=== PATIENT | male | born 1945 | race Caucasian/White ===

== ENCOUNTER → 2016-11-23 | Outpatient (CLI) | payer OTHER ==
[~2016-11-23] MED LIST: ASPI81TA28 PO; ATOR10TA82 PO; DVN/160 PO; WARF2TAB PO
== END | disposition home or self-care (01) ==
LOC: C.RDSM 13:33
PROVIDERS: ATTEND Physical Medicine & Rehabilitation Sports Medicine
DX: M25.562 Pain in left knee (principal); M25.561 Pain in right knee; Z96.651 Presence of right artificial knee joint

== ENCOUNTER → 2017-05-21 | Outpatient (CLI) | payer OTHER | END | disposition home or self-care (01) | LOC: C.RDSM 12:58 | PROVIDERS: ATTEND Physical Medicine & Rehabilitation Sports Medicine | DX: M17.12 Unilateral primary osteoarthritis, left knee (principal); Z96.651 Presence of right artificial knee joint ==

== ENCOUNTER 2019-01-04 04:48 | Inpatient (IN) ==
--- NOTE | 2018-12-19 10:56 | Anesthesiology Consultation ---
Date of Service December 19, 2018 Assessment & Plan (1) Encounter for pre-operative examination: PCP clearance (Kavon) 12/26 = "He should do well with surgery and is cleared to go ahead with that. I would assess him as a class II ASA risk for general anesthesia. His main risk port operatively would be infection and thrombotic events. With his history of hypertension and peripheral arterial disease, there ma be a remote risk for cardiovascular events." Chart Review Chart Review: Acceptable Risk for Surgery and Patient seen in Pre Admission Testing Teaching & Discussion Instructed NPO after midnight before surgery, except medications with 15 cc of water. Medication instructions provided according to the PAT guidelines. History Surgery Operation Date: 01/04/19 07:00 Proposed Procedures p Left Total Knee Arthroplasty - Ethan Gray MD Height/Weight Height: 5 ft 10 in Weight: 105.1 kg Allergies Allergy/AdvReac Type Severity Reaction Status Date / Time codeine AdvReac Unknown headache Verified 12/15/18 12:06 Medications Home Medications Medication Instructions Recorded Confirmed Last Taken Vitamin D3 1 dose PO QAM 12/15/18 12/15/18 Unknown aspirin 81 mg PO QPM 12/15/18 12/15/18 Unknown atorvastatin [Lipitor] 10 mg PO PM 12/15/18 12/15/18 Unknown levothyroxine 175 mcg PO QAM 12/15/18 12/15/18 Unknown olmesartan-hydrochlorothiazide 1 tab PO QPM 12/19/18 12/19/18 Unknown Past Medical History Medical History Borderline glaucoma HTN (hypertension) Hyperlipidemia 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 total thyroidectomy Osteoarthritis Exercise / Class Metabolic Activity II 4-5 Yardwork/Stairs/Walk up hill (Denies CP or SOB with stairs) Past Family History Family History Grandfather (Maternal) Family history of diabetes mellitus Grandmother (Maternal) Family history of diabetes mellitus Aunt Family history of diabetes mellitus Family/Other Family history of diabetes mellitus Past Surgical History Surgical History History of colonoscopy History of laminectomy lumbar spine History of oral surgery History of right knee joint replacement History of total thyroidectomy concern for malignancy; benign Status post biopsy of thyroid gland Past Anesthesia History No Hx of Anesthesia Complications and No Family Hx of Anesthesia Complications History of PONV No Hx of PONV and No Hx of Motion Sickness Social History Smoking Status: Former smoker tobacco type: cigarettes Do You Dip or Chew Tobacco: No Smoking End Date: 40 years ago Hx Alcohol Use: Yes Alcohol type: beer, wine and hard liquor alcohol intake frequency: 0-2 drinks per day (1-2 per day) Hx Substance Use: No substance use type: does not use Review of Systems Pt denies any recent chest pain, shortness of breath, palpitations, fever. +cough/congestion currently, not treating with any medications. Physical Exam Vital Signs BP: 156/83 (pt to f/u with PCP) P: 56bpm SPO2: 95% RA T: 97.9 F R: 16 ENMT Mouth: + dentures (full upper, partial lower); no chipped teeth and no loose teeth Thyromental Distance: > or= 3.5 Finger Breadths (4) Mallampati Class: II Neck + short neck; neck extension not limited Respiratory normal respiratory effort Auscultation: + rhonchi (L lung base) and + wheezes (L lung diffuse) Cardiovascular Rate/Rhythm: regular rhythm and + bradycardic Heart Sounds: no murmur Vessels: no carotid bruit Extremities: no edema Testing Laboratory Results 12/19/18 11:07 12/19/18 11:07 PT 10.9 Seconds (9.0-12.0) 12/19/18 11:07 INR 1.1 (0.9-1.1) 12/19/18 11:07 APTT 27.0 Seconds (21.0-31.0) 12/19/18 11:07 Urine Color Yellow 12/19/18 Unknown Urine Appearance Clear (Clear) 12/19/18 Unknown Urine pH 5.0 (4.5-7.5) 12/19/18 Unknown Ur Specific [place] 1.016 (1.000-1.030) 12/19/18 Unknown Urine Protein Negative (Negative) 12/19/18 Unknown Urine Glucose (UA) Negative (Negative) 12/19/18 Unknown Urine Ketones Negative (Negative) 12/19/18 Unknown Urine Nitrite Negative (Negative) 12/19/18 Unknown Ur Leukocyte Esterase Negative (Negative) 12/19/18 Unknown Blood Type A Positive 12/19/18 11:07 Antibody Screen NEGATIVE 12/19/18 11:07 Electrocardiogram Date: 12/19/18 Findings: + SB @ (53) LAFB. No significant change since 2014 EKG. Chest X-Ray Date: 12/19/18 Findings: + NAD Stress Test Date: 11/22/17 Type: exercise Stress EKG was negative for myocardial ischemia at 95% of maximum predicted heart rate. Moderate level of exercise achieved. No arrhythmias reproduced with exercise.
--- NOTE | 2018-12-19 11:03 | PAT Medication Instructions ---
Medication Instructions Date of Service December 19, 2018 Home Medications Vitamin D3 1 dose PO QPM aspirin 81 mg PO QPM atorvastatin [Lipitor] 10 mg PO PM levothyroxine 175 mcg PO QAM olmesartan-hydrochlorothiazide 1 tab PO QPM Take morning of surgery With a small sip of water, OTHERWISE NOTHING TO EAT OR DRINK AFTER MIDNIGHT: levothyroxine 175 mcg PO QAM Take evening before surgery aspirin 81 mg PO QPM atorvastatin [Lipitor] 10 mg PO PM olmesartan-hydrochlorothiazide 1 tab PO QPM Vitamin D3 1 dose PO QPM Other Notes If you have any questions please call us at [phone] or [phone] or [phone] or [phone]
--- NOTE | 2018-12-19 11:28 | XRay Report ---
XR chest Pre-admission PA/Lat CLINICAL HISTORY: pat preoperative evaluation COMPARISON STUDY: 12/06/2014 FINDINGS: The bones soft tissues and hemidiaphragms are normal. The cardiomediastinal silhouette is n ormal. The lungs are clear. The pulmonary vasculature is normal. IMPRESSION: Negative chest. The above report was generated using voice recognition software. It may contain grammatical, syntax or spelling errors. Electronically signed by: Camron Hassan M.D. 12/19/2018 11:27 AM
[2018-12-19 12:31] LABS: Appearance Urine Clear (Clear); Bilirubin Urine Negative (Negative); Blood Urine Negative (Negative); Color Urine Yellow; Glucose Urine UA Negative (Negative); Ketones Urine Negative (Negative); Leukocyte Esterase Urine Negative (Negative); Nitrite Urine Negative (Negative); Protein Urine Negative (Negative); Specific Gravity Urine 1.016 (1.000-1.030); Urobilinogen Urine Negative (Negative)
[2018-12-19 12:35] LABS: Basophils # (auto) 0.02 K/uL (0-0.2); Basophils % (auto) 0.4 %; Eosinophils # (auto) 0.16 K/uL (0-0.5); Eosinophils % (auto) 2.8 %; Hematocrit (blood only) 40.6 % (42-52); Hemoglobin 14.2 g/dL (14.0-18.0); Immature Granulocytes # (auto) 0.01 K/uL (0.00-0.02); Immature Granulocytes % (auto) 0.2 %; Lymphocytes # (auto) 1.75 K/uL (1.2-3.4); Lymphocytes % (auto) 31.1 %; Mean Corpuscular Hemoglobin 34.2 pg (25-34); Mean Corpuscular Volume 97.8 fL (80-100); Mean Platelet Volume 10.2 fL (7.4-10.4); Monocytes # (auto) 0.52 K/uL (0.11-0.59); Monocytes % (auto) 9.2 %; Neutrophils # (auto) 3.17 K/uL (1.4-6.5); Neutrophils % (auto) 56.3 %; Platelet Count 151 K/uL (130-400); RDW Coefficient of Variation 12.8 % (11.5-14.5); RDW Standard Deviation 45.6 fL (36.4-46.3); Red Blood Count 4.15 M/uL (4.7-6.1); White Blood Count 5.63 K/uL (4.8-10.8)
[2018-12-19 12:37] LABS: Creatinine Clr Calc Pharmacy 59.6 ml/min; Est GFR (African American) 61.2; Est GFR (Non-African American) 52.8; Potassium 4.1 mmol/L (3.5-5.1)
[2018-12-19 12:51] LABS: INR 1.1 (0.9-1.1); Prothrombin Time 10.9 Seconds (9.0-12.0)
--- NOTE | 2018-12-23 09:47 | History and Physical Report ---
DATE OF ADMISSION: 01/04/2019 CHIEF COMPLAINT: Left knee pain. HISTORY OF PRESENT ILLNESS: This 73-year-old white male presents to the office with complaints of left knee pain that has been ongoing for several years. There is a longstanding history of left knee pain. It is worse with motion. It is affecting his ADLs. Worse with weightbearing. He previously had a right total knee arthroplasty in 2015 and has done well with that. He elects to proceed with the same procedure on the left. No numbness or tingling. Preoperative imaging has been obtained. PAST MEDICAL HISTORY: Significant for hypertension, elevated cholesterol, recent cold symptoms, hypothyroidism, and osteoarthritis. PAST SURGICAL HISTORY: Thyroidectomy, spinal cyst removal with laminectomy, right total knee arthroplasty in 2015. ALLERGIES: KNOWN ALLERGY TO CODEINE. CURRENT MEDICATIONS: Amoxicillin 500 mg prior to dental visits, aspirin 81 mg daily, atorvastatin 10 mg daily, vitamin D3 daily, HCTZ/olmesartan 12.5 mg/20 mg p.o. daily, levothyroxine 175 mcg p.o. daily. SOCIAL HISTORY: No tobacco use, daily ETOH use. Retired, . FAMILY HISTORY: Significant for cancer and diabetes. Otherwise, unremarkable. REVIEW OF SYSTEMS: A total of 10 systems are reviewed and are significant only for above stated conditions. PHYSICAL EXAMINATION: GENERAL: Well-developed, well-nourished elderly white male in no acute distress. Sitting in a chair. Alert and oriented. SKIN: Warm and dry with good turgor. No rashes or lesions. No ecchymosis or erythema. He is quite guerra. HEENT: Normocephalic, atraumatic. Eyes: PERRLA, EOMI. Nares patent bilaterally without turbinate enlargement. Oropharynx without erythema or exudate. No lesions noted. Uvula midline. Oral mucosa moist. Upper denture plate is noted. Partial lower denture plate is noted. HEART: RRR. No MGR. LUNGS: Expiratory wheezing present in the bases. No crackles or rhonchi. Fair air movement. ABDOMEN: Bowel sounds present x4, soft, nontender. No organomegaly. No masses. MUSCULOSKELETAL: Left knee evaluation reveals no intra-articular effusion. Obvious arthritic changes. He lacks approximately 5 degrees of terminal extension on the left. Flexion to only around 90 degrees. Stable collateral ligaments. No defect in the patellar tendon or quadriceps tendon. Crepitus is palpable with motion. Ambulatory with an antalgic gait. NEUROLOGIC: Gross sensation is intact across both lower extremities by soft touch. Peripheral pulses are 2+. Cranial nerves II-XII are intact. DATA: Radiographic imaging obtained previously shows end-stage DJD of the left knee. Periarticular osteophytes, subchondral sclerosis, and joint space narrowing are all present. IMPRESSION: Left knee end-stage degenerative joint disease. PLAN: Informed written consent will be obtained the morning of surgery to proceed with left total knee arthroplasty. Postoperative prescriptions for Percocet and Coumadin will be provided at discharge from the hospital. Anticipate discharge to home with home health or outpatient services. The patient will obtain medical clearance from his PCP, Dr. Colmenares. Chest x-ray has been ordered. Normal preoperative lab work and EKG have also been ordered. He already has a walker and cane.
[2019-01-04] MEDS ORDERED: LR 500ML BOLUS, THEN 15ML/HR IV SCH (06:00)
[2019-01-04] MEDS ORDERED: TRANEXAMIC ACID 1,000 MG **IV Pre-op IV SCH (06:00)
[2019-01-04] MEDS ORDERED: LR 60ML/HR IV SCH (06:00)
[2019-01-04] MEDS ORDERED: CEFAZOLIN 2000MG 2,000 MG/15 ML SYR IV SCH (06:00)
[2019-01-04] MEDS ORDERED: ROPIVACAINE 0.5% HCL/PF 150 MG, BUPIVACAINE 0.5% MPF 30 ML, EPINEPHrine 0.15 MG, Ketoro... INFIL SCH (06:00)
[2019-01-04] MEDS ORDERED: BUPIVACAINE 0.5 % 5 MG/1 ML PF 10ML VIAL ONE (06:23)
--- NOTE | 2019-01-04 06:23 | History & Physical Bridge Note ---
Date of Service January 04, 2019 History & Physical Bridge Note I have examined the patient, reviewed the History & Physical and in the interval since the performance of the History & Physical I have noted the following changes of clinical significance:consent obtained. no changes noted
[2019-01-04] MEDS ORDERED: ROPIVACAINE 0.5% 5 MG/ML 30 ML VIAL ONE (06:24)
[2019-01-04] MEDS ORDERED: ORTHO JOINT ANESTHETIC ONE (06:33)
[2019-01-04] MEDS ORDERED: MIDAZOLAM HCL 1 MG/ML 2ML VIAL ONE ×2 (06:42→06:51)
[2019-01-04] MEDS ORDERED: LIDOCAINE HCL 2% 2 ML VIAL/AMP(20MG/ML) INFIL ONE (06:42)
[2019-01-04] MEDS ORDERED: PROPOFOL IV EMULSION 10 MG/ML 20 ML VIAL IV ONE ×2 (06:42→07:58)
[2019-01-04] MEDS ORDERED: fentaNYL citrate 100 MCG/2 ML VIAL ONE (06:42)
[2019-01-04] MEDS ORDERED: ONDANSETRON INJ 2 MG/ML 2 ML VIAL ONE (07:12)
[2019-01-04] MEDS ORDERED: ePHEDrine sulfate 50 MG/ML SYR ONE (08:19)
--- NOTE | 2019-01-04 08:25 | Post Operative Brief Note ---
Immediate Post Op Note v1 Date of Surgery January 04, 2019 Pre & Post Diagnosis Operation Date: 01/04/19 07:00 Pre-Op Diagnosis: Left Knee End-Stage Degenerative Joint Disease Post-Op Diagnosis: Left Knee End-Stage Degenerative Joint Disease Procedure Operation Date: 01/04/19 07:00 Actual Procedures p Left Total Knee Arthroplasty(Left) - Ethan Gray MD Surgeon Ethan Gray MD [facility] Estimated Blood Loss 50 Findings Consistent with Post-Op Diagnosis
--- NOTE | 2019-01-04 08:35 | Operative Report ---
Post Operative Report Pre & Post Diagnosis Operation Date: 01/04/19 07:00 Pre-Op Diagnosis: Left Knee End-Stage Degenerative Joint Disease Post-Op Diagnosis: Left Knee End-Stage Degenerative Joint Disease Procedure Operation Date: 01/04/19 07:00 Actual Procedures p Left Total Knee Arthroplasty(Left) - Ethan Gray MD Surgeon STEFFEN Gray MD [employer] PAC Estimated Blood Loss 50 Findings Consistent with Post-Op Diagnosis Specimens see operative report Drains none Complications none Disposition Accompanied Patient To Recovery: Yes Disposition: Recovery Room Indications This 73-year-old white male presented to the office with complaints of intractable left knee pain. He had tried activity modification, physical therapy, oral pain medication, and injection therapy without lasting improvement. He elected to proceed with surgical intervention after being educated about potential risks and outcomes. Patient previously had a right total knee arthroplasty and has done well with it. He elected to proceed with the same on the left. Preoperative imaging was obtained. Description of Procedure Patient was administered a spinal anesthetic and then taken to the operating room where he was given sedation. Patient was prepped and draped in the usual sterile fashion. Please see Dr. Gray's operative report for specifics of the procedure. I was present for the entire case from initial patient positioning through final wound closure. Assistance was provided in tissue retraction, hemostasis, trial implant placement, final implant placement, and final wound closure. Patient was taken to the recovery room in satisfactory condition. I attest to the content of the Intraoperative Record and any orders documented therein. Any exceptions are noted below.
--- NOTE | 2019-01-04 08:43 | Operative Report ---
DATE OF OPERATION: 01/04/2019 SURGEON: Ethan Gray MD PATENT COUNSEL: Jules Landa PA-C. No resident or fellow available. PREOPERATIVE DIAGNOSIS: Osteoarthritis with varus flexion deformity, left knee. POSTOPERATIVE DIAGNOSIS: Osteoarthritis with varus flexion deformity, left knee. OPERATION PERFORMED: Cemented left total knee replacement. PERIOPERATIVE SITUATION: Medically cleared male with intractable knee pain, has x-rays revealing tricompartmental disease, huge osteophytes and marked varus alignment. He has failed conservative management for over a decade. He is requesting knee replacement. He understands the risks and consequences. DESCRIPTION OF PROCEDURE: The patient was properly identified, site verified, consent verified. Antibiotics confirmed as being given. The left lower extremity was prepped and draped in usual routine fashion. Tourniquet inflated to 300 mmHg after exsanguination of limb with a rubber Esmarch bandage for a total of approximately 52 minutes. Midline exposure was utilized. Parapatellar arthrotomy performed. Synovectomy completed. Huge osteophytes resected along the margin of the femur and the patella. Exuberant soft tissue debridement needed to be required and soft tissue release medially to get him to open up. Once this was done, the distal femur was then entered. The cruciates resected. The ACL was chronically absent. PCL was there. Distal femur was then resected 14 mm. The proximal tibia was then resected 4 mm, then needed to be revised an additional 2 mm, the extension gap was excellent. Femur was then sized between a 5 and a 4, was measured 5 cut 4. There was no notching. The flexion gap was excellent. The posterior capsule was then injected with 20 mL of Orthomix. The box cut was then made and the size 4 trial fit well. The tibia was then subluxated and broaching and reaming carried out to a size 5 and the appropriate tibial baseplate seated and then the extension gap checked with a size 10 and that fit well. There was no mid range instability. The patella tracked well. So on, the tibia was a size 5 with a 4 spacer, 10 mm thick posterior cruciate substituting and the femur was a size 4 femur. The patella was then resected leaving 16 mm and size 41, button placed, seating holes made and the trial fit well and tracked well. All the Orthomix was then injected into this area. All trial implants were removed. The wound irrigated with Betadine and Pulsavac and then the permanent cemented into position, tibia, femur and patella in that order. After 12 minutes, the tourniquet deflated. After 14 minutes, the knee flexed. The spacer removed. The knee irrigated. Minor cement removal required. Wound irrigated with Betadine and Pulsavac and then Betadine one final time. The permanent liner seated. The knee reduced and then closed with #2 Vicryl, 0 Vicryl, 2-0 Vicryl and stainless steel clips. Appropriate dressing applied. The patient transferred to recovery room in satisfactory condition having tolerated the procedure well. Pathology pending on bone. ESTIMATED BLOOD LOSS: 50 mL. DVT prophylaxis with Coumadin. SUMMARY OF IMPLANTS: Size 4 posterior cruciate substituting femur, size 5 mobile bearing tray, posterior cruciate substituting oval dome 3 peg patella size 41, tibial insert size 4 x 10 mm posterior cruciate substituting matching the femur. I attest to the content of the Intraoperative Record and any orders documented therein. Any exception s are noted below.
--- NOTE | 2019-01-04 09:09 | XRay Report ---
XR knee LT 2V routine CLINICAL HISTORY: Surgical Post Op DEGENERATIVE ARTHRITIS COMPARISON: 12/19/2018 DISCUSSION: There are postsurgical changes of a total left knee arthroplasty and patellar resurfacing . The femoral and tibial components appear well seated. Overlying skin lisbet are evident. There is air within the soft tissues consistent with recent surgery. IMPRESSION: Postsurgical changes of a total left knee arthroplasty. Electronically signed by: Jabari Ridley M.D. 01/04/2019 9:07 AM
--- NOTE | 2019-01-04 09:34 | Anesthesiology Consultation ---
Date of Service January 04, 2019 History Surgery Operation Date: 01/04/19 07:00 Proposed Procedures p Left Total Knee Arthroplasty - Ethan Gray MD Height/Weight Height: 5 ft 10 in Weight: 101.264 kg Allergies Allergy/AdvReac Type Severity Reaction Status Date / Time codeine AdvReac Unknown headache Verified 01/04/19 05:35 Medications Home Medications Medication Instructions Recorded Confirmed Last Taken Vitamin D3 1 dose PO QAM 12/15/18 12/15/18 01/03/19 19:00 aspirin 81 mg PO QPM 12/15/18 12/15/18 01/03/19 19:00 atorvastatin [Lipitor] 10 mg PO PM 12/15/18 12/15/18 01/03/19 19:00 levothyroxine 175 mcg PO QAM 12/15/18 01/04/19 01/03/19 19:00 olmesartan-hydrochlorothiazide 1 tab PO QPM 12/19/18 12/19/18 01/03/19 19:00 Active Medications Generic Name Dose Route Start Last Admin Trade Name Mateo PRN Reason Stop Dose Admin Lactated Ringer's 1,000 mls @ 60 mls/hr 01/04/19 06:00 01/04/19 06:16 Lr IV 01/04/19 22:39 Not Given .[id number] WILMAN Cefazolin Sodium 2,000 mg in 15 mls @ 3.75 mls/min 01/04/19 06:00 01/04/19 06:48 Ancef 2000mg IV 01/04/19 18:00 3.75 mls/min PREOP WILMAN Administration Lactated Ringer's 1,000 mls @ 15 mls/hr 01/04/19 06:00 01/04/19 06:56 Lr IV 01/04/19 18:00 Infused .Q24H WILMAN Infusion Ropivacaine 150 mg/ 93.35 mls @ 0 mls/hr 01/04/19 06:00 01/04/19 08:00 Bupivacaine HCl 30 ml/ INFIL 01/04/19 18:00 93.35 mls/hr Epinephrine HCl 0.15 mg/ PREOP WILMAN Administration Ketorolac Tromethamine 30 mg/ Dexamethasone 4 mg/ Ketamine HCl 10 mg/ Clonidine HCl 100 Protocol mcg/ Sodium Chloride Per Protocol NPO Date Last Intake of Fluids: 01/03/19 Time Last Intake of Fluids: 19:00 Date Last Intake of Solids: 01/03/19 Time Last Intake of Solids: 15:00 Past Medical History Medical History Borderline glaucoma HTN (hypertension) Hyperlipidemia 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 total thyroidectomy Osteoarthritis Past Family History Family History Grandfather (Maternal) Family history of diabetes mellitus Grandmother (Maternal) Family history of diabetes mellitus Aunt Family history of diabetes mellitus Family/Other Family history of diabetes mellitus Past Surgical History Surgical History History of colonoscopy History of laminectomy lumbar spine History of oral surgery History of right knee joint replacement History of total thyroidectomy concern for malignancy; benign Status post biopsy of thyroid gland Past Anesthesia History No Hx of Anesthesia Complications and No Family Hx of Anesthesia Complications Social History Smoking Status: Former smoker tobacco type: cigarettes Do You Dip or Chew Tobacco: No Smoking End Date: 40 years ago Hx Alcohol Use: Yes Alcohol type: beer, wine and hard liquor alcohol intake frequency: 0-2 drinks per day (1-2 per day) Hx Substance Use: No substance use type: does not use Physical Exam Vital Signs Last Vital Signs Temp 36.7 C 01/04/19 09:10 Pulse 60 01/04/19 09:10 Resp 17 01/04/19 09:10 BP 96/60 L 01/04/19 09:10 Pulse Ox 98 01/04/19 09:10 Testing Laboratory Results 12/19/18 11:07 12/19/18 11:07 PT 10.9 Seconds (9.0-12.0) 12/19/18 11:07 INR 1.1 (0.9-1.1) 12/19/18 11:07 APTT 27.0 Seconds (21.0-31.0) 12/19/18 11:07 Urine Color Yellow 12/19/18 Unknown Urine Appearance Clear (Clear) 12/19/18 Unknown Urine pH 5.0 (4.5-7.5) 12/19/18 Unknown Ur Specific [place] 1.016 (1.000-1.030) 12/19/18 Unknown Urine Protein Negative (Negative) 12/19/18 Unknown Urine Glucose (UA) Negative (Negative) 12/19/18 Unknown Urine Ketones Negative (Negative) 12/19/18 Unknown Urine Nitrite Negative (Negative) 12/19/18 Unknown Ur Leukocyte Esterase Negative (Negative) 12/19/18 Unknown Blood Type A Positive 12/19/18 11:07 Antibody Screen NEGATIVE 12/19/18 11:07
[2019-01-04] MEDS ORDERED: HYDROmorphone INJ 0.5 MG/0.5 ML SYR IV PRN (09:37)
[2019-01-04] MEDS ORDERED: DiphenhydrAMINE HCL 50 MG/ML VIAL IV PRN (09:37)
[2019-01-04] MEDS ORDERED: SODIUM CHLORIDE 0.9% 1000ML 1,000 ML IV SCH (09:37)
[2019-01-04] MEDS ORDERED: ONDANSETRON INJ 2 MG/ML 2 ML VIAL IV PRN (09:37)
[2019-01-04] MEDS ORDERED: MAGNESIUM HYDROXIDE SUSP 30 ML UDC PO PRN (09:37)
[2019-01-04] MEDS ORDERED: METOCLOPRAMIDE HCL INJ 5 MG/ML 2 ML VIAL IV PRN (09:37)
[2019-01-04] MEDS ORDERED: TAMSULOSIN HCL 0.4 MG CAP PO PRN (09:37)
[2019-01-04] MEDS ORDERED: ALUMINUM/MAGNESIUM SUSP 30 ML UDC PO PRN (09:37)
[2019-01-04] MEDS ORDERED: OXYCODONE HCL IR 5 MG TAB (IMMEDIATE RELEASE) PO PRN (09:37)
[2019-01-04] MEDS ORDERED: NALOXONE HCL 0.4 MG/1 ML VIAL/CARP IV PRN (09:37)
[2019-01-04] MEDS ORDERED: BISACODYL 10 MG SUPP PR PRN (09:37)
[2019-01-04] MEDS ORDERED: VANCOMYCIN CONSULT ACTIVE PRN (09:37)
--- NOTE | 2019-01-04 09:38 | Anesthesiology Progress Note ---
Date of Service January 04, 2019 Anesthesia Post Procedure Vital Signs Vital Signs: Temp Pulse Pulse Resp BP Pulse Ox 01/04/19 09:10 36.7 C 60 17 96/60 L 98 01/04/19 09:00 36.7 C 65 17 113/65 97 01/04/19 08:50 62 14 102/63 99 01/04/19 08:40 67 14 103/64 100 01/04/19 08:34 37.1 C 76 12 102/61 96 01/04/19 05:37 36.7 C 61 20 127/85 97 Pain Intensity Left Knee: Pain Intensity: 0 Transfer of Care Handoff Completed per policy Notes Mental Status: alert / awake / arousable and participated in evaluation Patient Amnestic to Procedure: Yes Nausea / Vomiting: adequately controlled Pain: adequately controlled Airway Patency, RR, SpO2: stable & adequate BP & HR: stable & adequate Hydration State: stable & adequate Neuraxial Anesthesia: was administered and sensory block is resolving Anesthetic Complications: no major complications apparent
[2019-01-04] MEDS ORDERED: VANCOMYCIN HCL 1,500 MG in SODIUM CHLORIDE 0.9% 500 ML IV ONE (10:00)
--- NOTE | 2019-01-04 11:03 | Progress Note ---
DATE: 01/04/2019 SUBJECTIVE: Postop, has no chest pain, shortness of breath, fever, chills, nausea, vomiting or headache. OBJECTIVE: Vital signs are stable. He is afebrile. Neurovascular check is limited by his block, but it is starting to wear off. He has some active toe extension. His postop x-rays, AP and lateral look excellent. ASSESSMENT: Was being seen by case management and then will go with home outpatient services, does not wish to do any in-house services. Will follow up with me in 2 weeks for staple removal. Discharge tomorrow if does well this evening. Coumadin per protocol.
[2019-01-04] MEDS: LEVOTHYROXINE SODIUM 175 MCG TABLET PO SCH (11:19)
[2019-01-04] MEDS: KETOROLAC TROMETHAMINE 15 MG/ML VIAL IV SCH ×2 (11:20→17:54)
[2019-01-04] MEDS: MULTIVITAMIN TAB PO SCH (11:20)
[2019-01-04] MEDS: DOCUSATE SODIUM 100 MG CAP PO SCH ×2 (11:20→21:09)
[2019-01-04] MEDS ORDERED: Nursing to Pharmacy Communication ONE (12:34)
[2019-01-04] MEDS: ORTHO WARFARIN NOMOGRAM SCH (12:37)
[2019-01-04] MEDS: CEFAZOLIN 2000MG 2,000 MG/15 ML SYR IV SCH ×2 (14:00→22:20)
[2019-01-04] MEDS: ACETAMINOPHEN 500 MG TAB PO SCH ×2 (14:00→21:09)
[2019-01-04] MEDS ORDERED: TRANEXAMIC ACID 1,000 MG in 0.9 % SODIUM CHLORIDE 100 ML IV SCH (14:30)
[2019-01-04] MEDS: WARFARIN SOD 5 MG TAB PO SCH (15:13)
[2019-01-04] MEDS: FERROUS GLUCONATE 324 MG TAB PO SCH (17:54)
--- NOTE | 2019-01-04 18:54 | Discharge Summary ---
CHIEF COMPLAINT: Left knee pain. HISTORY OF PRESENT ILLNESS: Status post elective left total knee replacement. He is doing well. Denies chest pain, shortness of breath, fever, chills, nausea, vomiting or headache. PAST MEDICAL HISTORY: Remarkable for hypertension, elevated cholesterol, hypothyroidism, osteoarthritis. PAST SURGICAL HISTORY: Remarkable for thyroidectomy, spinal cyst removal, laminectomy, right total knee replacement. ALLERGIES: CODEINE. PREADMISSION MEDICATIONS: Include amoxicillin, aspirin, atorvastatin, hydrochlorothiazide, losartan, levothyroxine, will be discharged on Coumadin and p.r.n. pain medication. SOCIAL HISTORY: Reveals no tobacco or alcohol use. He is retired, . FAMILY HISTORY: Remarkable for cancer, diabetes. REVIEW OF SYSTEMS: Again is noncontributory. HOSPITAL COURSE: Has been uneventful status post left total knee replacement. Postoperative x-rays look excellent. PLAN: He will be discharged tomorrow. Will follow up in 2 weeks for staple removal. Case management is involved. Coumadin dose per INR tomorrow.
[2019-01-04] MEDS ORDERED: ATORVASTATIN 10 MG TAB PO SCH (21:00)
[2019-01-04] MEDS ORDERED: OLMESARTAN MEDOXOMIL 20 MG TAB PO SCH ×2 (21:00)
[2019-01-04] MEDS ORDERED: ASPIRIN 81 MG ECTAB PO SCH (21:00)
[2019-01-04] MEDS ORDERED: hydroCHLOROthiazide 25 MG TAB PO SCH (21:00)
[2019-01-04] MEDS ORDERED: SENNA 8.6 MG TAB PO SCH (21:00)
[2019-01-05] MEDS: KETOROLAC TROMETHAMINE 15 MG/ML VIAL IV SCH ×2 (00:31→05:48)
[2019-01-05] MEDS: LEVOTHYROXINE SODIUM 175 MCG TABLET PO SCH (05:48)
[2019-01-05] MEDS: ACETAMINOPHEN 500 MG TAB PO SCH (05:48)
[2019-01-05 06:08] LABS: Hematocrit (blood only) 33.9 % (42-52); Hemoglobin 12.1 g/dL (14.0-18.0); Mean Corpuscular Hemoglobin 34.8 pg (25-34); Mean Corpuscular Hgb Conc 35.7 g/dL (32-36); Mean Corpuscular Volume 97.4 fL (80-100); Mean Platelet Volume 10.1 fL (7.4-10.4); Platelet Count 142 K/uL (130-400); RDW Coefficient of Variation 12.3 % (11.5-14.5); Red Blood Count 3.48 M/uL (4.7-6.1)
[2019-01-05 06:16] LABS: INR 1.1 (0.9-1.1)
[2019-01-05 06:49] LABS: BUN Creatinine Ratio 16.8 (10-20); Calcium 7.8 mg/dl (8.5-10.1); Est GFR (African American) 48.1; Est GFR (Non-African American) 41.5; Potassium 3.9 mmol/L (3.5-5.1)
--- NOTE | 2019-01-05 07:45 | Progress Note ---
DATE: 01/05/2019 SUBJECTIVE: Postop day #1 status post left total knee replacement. The patient is doing well and denies any chest pain, shortness of breath, fever, chills, nausea, vomiting, or headache. OBJECTIVE: Vital signs are stable. He is afebrile. Neurovascular check femoral sciatic nerve is normal. Wound dressing is clean, dry and intact. Hematocrit stable at 33.9. INR is 1.1. ASSESSMENT: Doing well. Plan is for discharge to home today after PT, OT. Please give Coumadin before leaving based on nomogram. Home dose Coumadin will be 4 mg every evening. Check INR repeated on this coming Wednesday.
--- NOTE | 2019-01-05 07:58 | Anesthesiology Progress Note ---
Date of Service January 05, 2019 Anesthesia Post Procedure Vital Signs Vital Signs: Temp Pulse Pulse Pulse Resp BP Pulse Ox 01/05/19 03:16 36.5 C 68 14 108/65 96 01/04/19 23:07 36.8 C 62 16 113/62 98 01/04/19 19:40 36.7 C 70 18 115/67 97 01/04/19 16:35 36.4 C L 61 16 115/65 95 01/04/19 12:30 36.5 C 69 16 114/68 96 01/04/19 11:36 66 19 110/65 95 01/04/19 10:27 67 18 106/65 94 01/04/19 10:04 60 18 110/67 94 01/04/19 09:30 36.6 C 66 16 96/61 L 95 01/04/19 09:10 36.7 C 60 17 96/60 L 98 01/04/19 09:00 36.7 C 65 17 113/65 97 01/04/19 08:50 62 14 102/63 99 01/04/19 08:40 67 14 103/64 100 01/04/19 08:34 37.1 C 76 12 102/61 96 Pain Intensity Left Knee: Pain Intensity: 0 Notes Mental Status: alert / awake / arousable and participated in evaluation Patient Amnestic to Procedure: Yes Nausea / Vomiting: adequately controlled Pain: adequately controlled Airway Patency, RR, SpO2: stable & adequate BP & HR: stable & adequate Hydration State: stable & adequate Neuraxial Anesthesia: was administered and sensory block resolved Anesthetic Complications: no major complications apparent and Pt Satisfied with anesthetic care
[2019-01-05] MEDS ORDERED: dexAMETHasone 10 MG in SYRINGE 0 ML IV SCH (08:00)
--- NOTE | 2019-01-05 08:24 | Orthopedic Progress Note ---
Date of Service January 05, 2019 Assessment & Plan (1) Status post total left knee replacement: Postoperative dressing was changed this morning. Wound looks excellent. No active drainage. Expected postoperative edema and ecchymosis. It may be redressed on Wednesday if needed Continue with his SHIREEN hose until seen in the office postop Follow-up in the office in 2 weeks for staple removal Continue with ice and elevation frequently to reduce pain and swelling Coumadin 4 mg daily. Recheck INR on Wednesday PT/OT this morning. Continue with a home exercise program Discharge to home this morning after physical therapy, and start outpatient lab services on Wednesday Subjective Patient is seen in his room this morning. States he has had very little pain. He only took some Toradol and Tylenol overnight. No narcotics. He states he slept fairly well. He feels ready for discharge to home. No other complaints. No chest pain, shortness of breath, nausea, vomiting, or abdominal pain. Physical Exam Physical Exam: General: Well-developed, well-nourished, elderly white male, sitting in his bed. Alert and oriented. No acute distress. Seems content. Skin: Warm and dry with good turgor. Expected postoperative edema and ecchymosis. No active drainage from his incision. [place] are intact. Musculoskeletal: Patient has intact motor function to his ankle and toes. He is able to perform straight leg raise. He lacks just a few degrees of terminal extension. Neurologic: Gross sensation is intact across the left lower extremity by soft touch. Peripheral pulses are 2+. Results & Data Vital Signs (Past 12 Hours) Vital Signs Temp Pulse Resp BP Pulse Ox 01/05/19 03:16 36.5 C 68 14 108/65 96 01/04/19 23:07 36.8 C 62 16 113/62 98
[2019-01-05 08:33] VITALS: BP 114/69; TEMP 98.2; O2SAT 93
[2019-01-05] MEDS: MULTIVITAMIN TAB PO SCH (08:39)
[2019-01-05] MEDS: FERROUS GLUCONATE 324 MG TAB PO SCH (08:39)
[2019-01-05] MEDS: DOCUSATE SODIUM 100 MG CAP PO SCH (08:39)
[2019-01-05] MEDS: ORTHO WARFARIN NOMOGRAM SCH (09:43)
[2019-01-05 09:46] VITALS: PULSE 68
[2019-01-05] MEDS: WARFARIN SOD 5 MG TAB PO SCH (10:38)
== END 2019-01-05 11:32 | disposition home or self-care (01) | DRG 470 ==
LOC: ASU 04:48 → 3E 08:44

== ENCOUNTER 2021-01-08 06:13 | Observation (INO) ==
--- NOTE | 2020-12-31 13:55 | History & Physical Report ---
Date of Service December 31, 2020 Assessment & Plan (1) Degenerative joint disease of right hip: Informed written consent will be obtained the morning of surgery. Postoperative prescriptions for Percocet and Coumadin will be provided at discharge from the hospital. Anticipate discharge to home with home health services. He has an appointment to see his PCP for medical clearance this . Preoperative lab work, EKG, and chest x-ray were ordered for today. He will obtain COVID-19 nasal swab testing next Wednesday. He is aware of the COVID-19 risks associated with surgery. He is currently asymptomatic of any COVID-19 symptoms. PDMP was checked and there are no concerning findings. The patient does have a walker and cane at home already. Call with any other concerns. History of Present Illness Chief Complaint: Right hip pain Primary Care Provider: Kilo Jacobson MD This 75-year-old male presents for his preoperative history and physical. He is scheduled to undergo a right total hip arthroplasty on 01/08/2021. The patient has had a longstanding history of right hip pain. He noted some mild discomfort in his hips for about a year. Symptoms became acutely worse within the last 3 months. He is now having difficulty with simple daily activities. He states he cannot put a sock on secondary to hip pain. He notes loss of motion. He is having difficulty doing daily activities. Pain is worse with weightbearing or movement. He denies any numbness or tingling. Preoperative imaging has been obtained. Allergies Allergy/AdvReac Type Severity Reaction Status Date / Time codeine AdvReac Unknown headache Verified 01/04/19 05:35 Home Medications Medication Instructions Recorded Confirmed Type Vitamin D3 1 dose PO QAM 12/15/18 12/15/18 History aspirin 81 mg PO QPM 12/15/18 12/15/18 History atorvastatin [Lipitor] 10 mg PO PM 12/15/18 12/15/18 History levothyroxine 175 mcg PO QAM 12/15/18 01/04/19 History olmesartan-hydrochlorothiazide 1 tab PO QPM 12/19/18 12/19/18 History tramadol [Ultram] 100 mg PO Q6H PRN #30 tab 01/05/19 Rx warfarin 4 mg PO DAILY #60 tab 01/05/19 Rx Past Med/Surg History Medical History (Updated 12/31/20 @ 13:54 by Jules Landa PA-C) Borderline glaucoma HTN (hypertension) Hyperlipidemia 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 total thyroidectomy Osteoarthritis Spinal stenosis Surgical History (Updated 01/05/19 @ 08:24 by Jules Landa PA-C) History of colonoscopy History of laminectomy lumbar spine History of oral surgery History of right knee joint replacement History of total thyroidectomy concern for malignancy; benign Status post biopsy of thyroid gland Family History Grandfather (Maternal) Family history of diabetes mellitus Grandmother (Maternal) Family history of diabetes mellitus Aunt Family history of diabetes mellitus Family/Other Family history of diabetes mellitus Social History (Updated 12/31/20 @ 13:52 by Jules Landa PA-C) Smoking Status: Former smoker Second Hand Exposure: No; Hx Alcohol Use: Yes Alcohol type: beer, wine and hard liquor Hx Substance Use: No Preferred Language: Grenadian Communication Ability: Effective Cat Scanner Operator Required: No Beliefs That Will Affect Care: None marital status: Current Living Situation: Spouse current occupational status: retired Feels Safe at Home: Yes Assistive Devices: Brace/Splint/Immobilizer and Walker Review of Systems Review of Systems: All systems reviewed & are unremarkable except as noted in HPI & below A total of 10 systems were reviewed. Physical Exam Physical Exam: Vitals: Height 177.5 cm, weight 100 kilograms, BMI 31.7, temperature 36.6, BP 118/70, pulse 62, O2 sat 96% on room air. General: Well-developed, well-nourished, elderly white male in no acute distress. Sitting in a chair. Alert and oriented. Skin: Warm and dry with good turgor. No rashes or lesions. No ecchymosis or erythema. HEENT: Normocephalic, atraumatic. Eyes: PERRLA, EOMI. Nares patent bilaterally without turbinate enlargement. Oropharynx exam deferred due to COVID precautions. Heart: RRR, no MGR. Lungs: Clear to auscultation bilaterally, no crackles, rhonchi or wheezing. Good air movement. Abdomen: Obese. Bowel sounds present x4, soft, nontender. No organomegaly. No masses. Musculoskeletal: Right hip evaluation reveals no obvious asymmetry or deformity. He has limitations in motion. External rotation of around 20 degrees, internal rotation of 10 degrees. Hip flexion to just beyond 90 degrees before onset of pain. Ambulating with an antalgic gait. No discomfort with palpation over the IT band or greater trochanter at this time. He does have discomfort in the anterior flexion crease. The patient does have a flexion contracture of about 15 degrees. Neurologic: Gross sensation is intact across the lower extremities by soft touch. Sensation is symmetric. Peripheral pulses are 2+. Results & Data Results & Data ([facility]) Diagnostic Findings Radiographic imaging previously obtained shows end-stage DJD of the right hip with Cam lesion and dysplasia. Periarticular osteophytes and joint space narrowing are both present.
--- NOTE | 2021-01-02 14:16 | Anesthesiology Consultation ---
Date of Service January 02, 2021 Assessment & Plan (1) Encounter for pre-operative examination: Chart Review Chart Review: Acceptable Risk for Surgery (pending preop Covid testing results ) and Patient NOT seen in Pre Admission Testing Per nursing assessment 01/02/2021, patient resides in [facility]. Traveled to the [place] in [place]- returned 12/21/20. No known Covid positive contacts or Covid related symptoms. No known Covid infection in the past 90 days. Patient vaccinated for Covid. Preop Covid testing scheduled 01/03/2021 = will await results. Left TKA 01/04/2019 = done under SAB at L3-4. With 1 attempt. No anesthesia issues noted per anesthesia record. History Surgery Operation Date: 01/08/21 08:50 Proposed Procedures p Right Total Hip Arthroplasty - Ethan Gray MD Height/Weight Height: 5 ft 10 in Weight: 97.522 kg Allergies Allergy/AdvReac Type Severity Reaction Status Date / Time codeine AdvReac Intermediate headache Verified 01/02/21 13:17 Medications Home Medications Medication Instructions Recorded Confirmed Last Taken aspirin 81 mg tablet,delayed 81 mg PO QPM 12/15/18 01/02/21 01/03/19 19:00 release atorvastatin 10 mg tablet (Lipitor) 10 mg PO PM 12/15/18 01/02/21 01/03/19 19:00 olmesartan 20 1 tab PO QPM 12/19/18 01/02/21 01/03/19 19:00 mg-hydrochlorothiazide 12.5 mg tablet cholecalciferol (vitamin D3) 50 50 mcg PO QAM 01/02/21 01/02/21 Unknown mcg (2,000 unit) tablet (Vitamin D3) levothyroxine 150 mcg tablet 150 mcg PO QAM 01/02/21 01/02/21 Unknown omega-3 fatty acids 1,000 mg 2,000 mg PO BID 01/02/21 01/02/21 Unknown capsule Past Medical History Medical History Borderline glaucoma HTN (hypertension) Hyperlipidemia 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 total thyroidectomy Osteoarthritis Spinal stenosis Past Family History Family History Grandfather (Maternal) Family history of diabetes mellitus Grandmother (Maternal) Family history of diabetes mellitus Aunt Family history of diabetes mellitus Family/Other Family history of diabetes mellitus Other No family history of adverse response to anesthesia Past Surgical History Surgical History History of colonoscopy History of laminectomy lumbar spine History of meniscectomy of right knee History of oral surgery tooth removal--full upper denture/partial lower denture History of right knee joint replacement History of total left knee replacement (TKR) History of total thyroidectomy concern for malignancy; benign Status post biopsy of thyroid gland Social History Smoking Status: Never smoker tobacco type: cigarettes Do You Dip or Chew Tobacco: No Hx Alcohol Use: Yes Alcohol type: beer, wine and hard liquor alcohol intake frequency: 0-2 drinks per day Hx Substance Use: No substance use type: does not use Lab Results Anesthesia Preop Results Results Anesthesia Widget: WBC 5.17 K/uL (4.8-10.8) 12/30/20 Hgb 14.1 g/dL (14.0-18.0) 12/30/20 Hct 40.0 % (42-52) L 12/30/20 Plt 184 K/uL (130-400) 12/30/20 Na 141 mmol/L (136-145) 12/30/20 K 4.3 mmol/L (3.5-5.1) 12/30/20 Cl 110 mmol/L (98-107) H 12/30/20 CO2 27 mmol/L (21-32) 12/30/20 BUN 30 mg/dl (7-18) H 12/30/20 Creat 1.52 mg/dl (0.6-1.4) H 12/30/20 Glucose Level 116 mg/dl (70-99) H 12/30/20 PT 10.4 Seconds (9.0-12.0) 12/30/20 PTT 25.8 Seconds (21.0-31.0) 12/30/20 INR 1.0 (0.9-1.1) 12/30/20 Urine Color Yellow 12/30/20 Urine Appearance Slightly Cloudy (Clear) A 12/30/20 Urine pH 5.0 (4.5-7.5) 12/30/20 Urine Specific [place] 1.021 (1.000-1.030) 12/30/20 Urine Protein Negative (Negative) 12/30/20 Urine Glucose (UA) Negative (Negative) 12/30/20 Urine Ketones Negative (Negative) 12/30/20 Urine Blood Negative (Negative) 12/30/20 Urine Nitrite Negative (Negative) 12/30/20 Urine Bilirubin Negative (Negative) 12/30/20 Urine Urobilinogen Negative (Negative) 12/30/20 Urine Leukocyte Esterase Negative (Negative) 12/30/20 Blood Type A Positive 12/30/20 Antibody Screen NEGATIVE 12/30/20 Lab Comments: Elevated BUN/creat stable from 2019 Testing Electrocardiogram Date: 12/30/20 Findings: + SB @ (56 bpm) Left anterior fascicular block. When compared to EKG from December 19, 2018no significant changes found per cardio. Chest X-Ray Date: 12/30/20 Findings: + NAD Stress Test Date: 11/22/17 Type: exercise Stress EKG was negative for myocardial ischemia at 95% of maximum predicted heart rate. Moderate level of exercise achieved. No arrhythmias reproduced with exercise.
[~2021-01-08 06:13] MED LIST changes: -ASPI81TA28 PO; -ATOR10TA82 PO; -DVN/160 PO; +LR 500ML BOLUS, THEN 15ML/HR IV SCH; +LR 60ML/HR IV SCH; +ROPIVACAINE 0.5% HCL/PF 150 MG, BUPIVACAINE 0.75% MPF 20 ML, EPINEPHrine 0.15 MG, Ketor... INFIL SCH; +TRANEXAMIC ACID 1,000 MG **IV Pre-op IV SCH; -WARF2TAB PO; +ceFAZolin 2000MG 2,000 MG/15 ML SYR IV SCH
[2021-01-08] MEDS ORDERED: BUPIVACAINE 0.5 % 5 MG/1 ML PF 10ML VIAL ONE (06:23)
--- NOTE | 2021-01-08 06:33 | History & Physical Bridge Note ---
Date of Service January 08, 2021 History & Physical Bridge Note I have examined the patient, reviewed the History & Physical and in the interval since the performance of the History & Physical I have noted the following changes of clinical significance:consent obtained/site verified/covid screen negative. no changes noted
[2021-01-08] MEDS ORDERED: fentaNYL citrate 100 MCG/2 ML VIAL ONE (07:38)
[2021-01-08] MEDS ORDERED: MIDAZOLAM HCL 1 MG/ML 2ML VIAL ONE ×2 (07:38→08:58)
[2021-01-08] MEDS ORDERED: PROPOFOL IV EMULSION 10 MG/ML 20 ML VIAL IV ONE (07:38)
[2021-01-08] MEDS ORDERED: ORTHO JOINT ANESTHETIC ONE (08:45)
[2021-01-08] MEDS ORDERED: fentaNYL citrate 100 MCG/2 ML VIAL IV PRN (08:55)
[2021-01-08] MEDS ORDERED: ePHEDrine sulfate 50 MG/ML AMP IV PRN (08:55)
[2021-01-08] MEDS ORDERED: ATROPINE SULFATE 0.1 MG/ML 10ML SYR IV PRN (08:55)
--- NOTE | 2021-01-08 10:26 | Post Operative Brief Note ---
Immediate Post Op Note v1 Date of Surgery January 08, 2021 Pre & Post Diagnosis Operation Date: 01/08/21 08:50 Pre-Op Diagnosis: Right Hip Degenerative Joint Disease Post-Op Diagnosis: Right Hip Degenerative Joint Disease I identified the patient and participated in the time-out.: Yes Procedure Operation Date: 01/08/21 08:50 Actual Procedures p Right Total Hip Arthroplasty--Uncemented(Right) - Ehtan Gray MD Surgeon Ethan Gray MD Child Care Cook grecia Estimated Blood Loss 150 Findings Consistent with Post-Op Diagnosis djd
--- NOTE | 2021-01-08 10:43 | Operative Report ---
Post Operative Report Pre & Post Diagnosis Operation Date: 01/08/21 08:50 Pre-Op Diagnosis: Right Hip Degenerative Joint Disease Post-Op Diagnosis: Right Hip Degenerative Joint Disease I identified the patient and participated in the time-out.: Yes Procedure Operation Date: 01/08/21 08:50 Actual Procedures p Right Total Hip Arthroplasty--Uncemented(Right) - Ethan Gray MD Surgeon STEFFEN Gray MD Glass Installer Cordell CEBALLOS Estimated Blood Loss 150 Findings Consistent with Post-Op Diagnosis Specimens see operative report Drains none Complications none Indications This 75-year-old male presented to the office with complaints of persisting right hip pain. He had tried conservative care measures without improvement. He elected to proceed with surgical intervention after being educated about potential risks and outcomes. Preoperative imaging was obtained. Description of Procedure The patient was administered a spinal anesthetic and then taken to the operating room where he was given sedation. He was prepped and draped in the usual sterile fashion. Please see Dr. Gray's operative report for specifics of the procedure. I was present for the entire case from initial patient positioning through final wound closure. Assistance was provided in tissue retraction, hemostasis, trial implant placement, final implant placement, and final wound closure. Patient was taken to the recovery room in satisfactory condition. I attest to the content of the Intraoperative Record and any orders documented therein. Any exceptions are noted below.
--- NOTE | 2021-01-08 11:02 | Operative Report (OR) ---
DATE OF PROCEDURE: 01/08/2021 SURGEON: Ethan Gray MD. CONE MACHINE FEEDER: Jules Landa PA-C. No resident or fellow available. PREOPERATIVE DIAGNOSIS: Osteoarthritis, right hip. POSTOPERATIVE DIAGNOSIS: Osteoarthritis, right hip. OPERATION PERFORMED: Noncemented right total hip replacement. PERIOPERATIVE SITUATION: Medically cleared male with intractable hip pain. X-rays reveal end-stage d isease. He has a flexion contracture and external rotation contracture. He wants to proceed with martinez rgical treatment. He understands all risks and consequences. SUMMARY OF IMPLANTS: Size 54 acetabular shell sector cup, 25 x 6.5 mm screw, 36 x 54 neutral liner, 5 standard Tri-Lock stem, 36+5 ceramic head. ESTIMATED BLOOD LOSS: Roughly 150 mL. CRYSTALLOID: Per anesthesia. DVT prophylaxis per protocol. Pathology pending on bone. DESCRIPTION OF PROCEDURE: The patient was appropriately identified, site verified, consent verified. Antibiotics were confirmed as being given. The right lower extremity was prepped and draped in the usual routine fashion with the patient in left lateral decubitus position. A posterior approach to the hip was made. Sharp dissection carried through skin, blunt dissection down to fascia. The fasc ia was then split including gluteus donovan fascia. Retractor was placed protecting the sciatic nerve . The short external rotators were identified and released. Capsule T'ed. Hip dislocated. The femo ral neck was then resected. Femur was then extended, and retractors placed anteriorly, superiorly an d inferiorly. There was exuberant labrum and tissue disease in the joint. This was all resected. M ultiple loose bodies were removed. Serial reaming was carried up to a 54 and a 54 cup impacted into appropriate anteversion and inclination with excellent fit, and an additional 6.5 x 25 screw was gloria lexi with excellent purchase. Some osteophytes were removed inferiorly. The wound was then irrigated . The femur was then flexed and internally rotated, delivered in the wound and the proximal femur pr epared with crap game box person, lateralizing rasp and serial broaching up to a size 5. Trial reduction ema ed out with multiple heads. The +5 gave appropriate length and stability. The hip was then dislocat ed. All remaining trial elements were removed, the wound irrigated with Betadine and Pulsavac. Hole eliminator seated, permanent liner seated, permanent stem seated, permanent head seated and the hip w as reduced. There was excellent stability in all planes. Leg lengths were excellent. The wound was then irrigated one final time, and the capsule and short external rotators closed with 2-0 Vicryl, f ascia closed with 2-0 Vicryl, the subcutaneous layer with 2-0 plain and skin with stainless steel cli ps. Appropriate dressing applied and the patient was transferred to recovery room in satisfactory co ndition, having tolerated the procedure well. Job ID: [id number]
--- NOTE | 2021-01-08 11:05 | Progress Notes ---
DATE OF SERVICE: 01/08/2021 SUBJECTIVE: Postop check status post right total hip replacement. The patient is doing well. Denie s chest pain, shortness of breath, fever, chills, nausea, vomiting, or headache. OBJECTIVE: Vital signs are stable. He is afebrile. Neurovascular check is limited by spinal. Wou nd dressing is clean, dry and intact. Hips are located. Leg lengths are equal. X-ray is pending. ASSESSMENT: Doing well. Continue with postoperative care pathway and advance with case management, weightbearing as tolerated if x-rays look good. Job ID: [id number]
--- NOTE | 2021-01-08 11:08 | Discharge Summary (DS) ---
DATE OF ADMISSION: 01/08/2021 DATE OF POTENTIAL DISCHARGE: 01/09/2021 CHIEF COMPLAINT: Right hip pain. HISTORY OF PRESENT ILLNESS: The patient underwent elective right total hip replacement. Hospital co [facility] has been uneventful. PAST MEDICAL AND PAST SURGICAL HISTORY: Remarkable for borderline glaucoma, hypertension, hyperlipide sowmya, hypothyroidism, thyroidectomy surgery, osteoarthritis, spinal stenosis, colonoscopies, laminecto mies, knee replacements, skin biopsies. FAMILY HISTORY: Remarkable for diabetes. SOCIAL HISTORY: Reveals that he is , former smoker, social alcohol. Lives with his spouse. Retired. Feels safe. REVIEW OF SYSTEMS: Noncontributory. ASSESSMENT: Did well status post right total hip replacement. We will continue with postoperative c are pathway check. Postoperative x-rays pending. Potential discharge tomorrow if he does well overn ight. Case management is involved. Deep venous thrombosis prophylaxis per protocol. Job ID: [id number]
--- NOTE | 2021-01-08 11:47 | Anesthesiology Progress Note ---
Date of Service January 08, 2021 Anesthesia Post Procedure Vital Signs Vital Signs: Temp Pulse Pulse Resp BP Pulse Ox 01/08/21 11:45 62 12 123/74 96 01/08/21 11:35 57 L 15 114/68 98 01/08/21 11:25 62 12 121/73 96 01/08/21 11:15 62 12 107/64 96 01/08/21 11:05 63 16 113/64 97 01/08/21 10:55 71 19 113/68 97 01/08/21 10:45 72 15 113/63 98 01/08/21 10:36 36.4 C L 80 16 108/56 L 95 01/08/21 06:46 36.9 C 54 L 18 136/84 98 Transfer of Care Handoff Completed per policy Notes Mental Status: alert / awake / arousable and participated in evaluation Patient Amnestic to Procedure: Yes Nausea / Vomiting: adequately controlled Pain: adequately controlled Airway Patency, RR, SpO2: stable & adequate BP & HR: stable & adequate Hydration State: stable & adequate Anesthetic Complications: no major complications apparent
[2021-01-08] MEDS ORDERED: ONDANSETRON INJ 2 MG/ML 2 ML VIAL IV PRN (12:57)
[2021-01-08] MEDS ORDERED: TAMSULOSIN HCL 0.4 MG CAP PO PRN (12:57)
[2021-01-08] MEDS ORDERED: HYDROmorphone INJ 0.5 MG/0.5 ML SYR IV PRN (12:57)
[2021-01-08] MEDS ORDERED: MAGNESIUM HYDROXIDE SUSP 30 ML UDC PO PRN (12:57)
[2021-01-08] MEDS ORDERED: METOCLOPRAMIDE HCL INJ 5 MG/ML 2 ML VIAL IV PRN (12:57)
[2021-01-08] MEDS ORDERED: SODIUM CHLORIDE 0.9% 1000ML 1,000 ML IV SCH (12:57)
[2021-01-08] MEDS ORDERED: oxyCODONE HCL IR 5 MG TAB (IMMEDIATE RELEASE) PO PRN (12:57)
[2021-01-08] MEDS ORDERED: diphenhydrAMINE 50 MG/ML VIAL IV PRN (12:57)
[2021-01-08] MEDS ORDERED: bisacodyL 10 MG SUPP PR PRN (12:57)
[2021-01-08] MEDS ORDERED: NALOXONE HCL 0.4 MG/1 ML VIAL/CARP IV PRN (12:57)
[2021-01-08] MEDS ORDERED: ALUMINUM/MAGNESIUM SUSP 30 ML UDC PO PRN (12:57)
--- NOTE | 2021-01-08 12:59 | XRay Report ---
XR pelvis 1V supine CLINICAL HISTORY: S/P R HIPOLITO COMPARISON STUDY: Right hip radiographs December 02, 2020. FINDINGS: Alignment of the total right hip arthroplasty is anatomic. There is no periprosthetic fract ure or unexpected radiopaque foreign body. There are skin lisbet. IMPRESSION: Expected findings following total right hip arthroplasty. ACT 112: Negative or not required by law. Electronically signed by: Pineda Fisher M.D. 01/08/2021 12:58 PM
[2021-01-08] MEDS ORDERED: VANCOMYCIN HCL 1,500 MG in SODIUM CHLORIDE 0.9% 500 ML IV ONE (14:00)
[2021-01-08] MEDS: KETOROLAC TROMETHAMINE 15 MG/ML VIAL IV SCH ×2 (14:14→20:50)
[2021-01-08] MEDS: ACETAMINOPHEN 500 MG TAB PO SCH ×2 (14:14→21:11)
[2021-01-08] MEDS: ORTHO WARFARIN NOMOGRAM SCH (14:18)
[2021-01-08] MEDS ORDERED: WARFARIN SOD 5 MG TAB PO SCH (16:00)
[2021-01-08] MEDS: ASCORBIC ACID 500 MG TAB PO SCH (16:44)
[2021-01-08] MEDS: FERROUS GLUCONATE 324 MG TAB PO SCH (16:44)
[2021-01-08] MEDS ORDERED: TRANEXAMIC ACID / 0.7% NACL 1,000 MG/100 ML BAG IV SCH (17:00)
[2021-01-08] MEDS: ceFAZolin 2000MG 2,000 MG/15 ML SYR IV SCH (17:26)
[2021-01-08] MEDS: DOCUSATE SODIUM 100 MG CAP PO SCH (20:51)
[2021-01-08] MEDS ORDERED: NON-FORMULARY MEDICATION (Olmesartan-Hydrochlorothiazide 20-12.5 mg Tablet) PO SCH (21:00)
[2021-01-08] MEDS ORDERED: ATORVASTATIN 10 MG TAB PO SCH (21:00)
[2021-01-08] MEDS ORDERED: hydroCHLOROthiazide 25 MG TAB PO SCH (21:00)
[2021-01-08] MEDS ORDERED: OLMESARTAN MEDOXOMIL 20 MG TAB PO SCH (21:00)
[2021-01-08] MEDS ORDERED: SENNA 8.6 MG TAB PO SCH (21:00)
[2021-01-08] MEDS ORDERED: ASPIRIN 81 MG ECTAB PO SCH (21:00)
[2021-01-09] MEDS: KETOROLAC TROMETHAMINE 15 MG/ML VIAL IV SCH ×2 (00:59→08:15)
[2021-01-09] MEDS: ceFAZolin 2000MG 2,000 MG/15 ML SYR IV SCH (00:59)
[2021-01-09] MEDS: ACETAMINOPHEN 500 MG TAB PO SCH (05:44)
[2021-01-09] MEDS ORDERED: LEVOTHYROXINE SODIUM 150 MCG TABLET PO SCH (06:30)
[2021-01-09 06:36] LABS: Basophils # (auto) 0.01 K/uL (0-0.2); Basophils % (auto) 0.1 %; Eosinophils # (auto) 0.09 K/uL (0-0.5); Eosinophils % (auto) 1.1 %; Hematocrit (blood only) 37.3 % (42-52); Hemoglobin 13.1 g/dL (14.0-18.0); Immature Granulocytes # (auto) 0.02 K/uL (0.00-0.02); Immature Granulocytes % (auto) 0.3 %; Lymphocytes # (auto) 1.02 K/uL (1.2-3.4); Mean Corpuscular Hemoglobin 34.4 pg (25-34); Mean Corpuscular Hgb Conc 35.1 g/dL (32-36); Mean Corpuscular Volume 97.9 fL (80-100); Mean Platelet Volume 9.9 fL (7.4-10.4); Monocytes # (auto) 0.93 K/uL (0.11-0.59); Monocytes % (auto) 11.8 %; Neutrophils # (auto) 5.78 K/uL (1.4-6.5); Neutrophils % (auto) 73.7 %; Platelet Count 144 K/uL (130-400); RDW Coefficient of Variation 12.7 % (11.5-14.5); RDW Standard Deviation 45.5 fL (36.4-46.3); Red Blood Count 3.81 M/uL (4.7-6.1); White Blood Count 7.85 K/uL (4.8-10.8)
[2021-01-09 07:05] LABS: Potassium 3.6 mmol/L (3.5-5.1)
[2021-01-09 07:11] LABS: Prothrombin Time 10.4 Seconds (9.0-12.0)
--- NOTE | 2021-01-09 07:16 | Progress Notes ---
DATE: 01/08/2021. SUBJECTIVE: Postop check status post right total hip replacement. The patient is doing well, sitting up in bed, has no major issues. Denies any chest pain, shortness of breath, fever, chills, nausea, vomiting, or headache. OBJECTIVE: Vital signs are stable. He is afebrile. Neurovascular check femoral sciatic nerve is normal. Wound dressing clean, dry and intact. Calves no ntender. LABORATORY DATA: Hematocrit is stable at 37.3. INR is pending. Chemistry panel pending. ASSESSMENT AND PLAN: Doing well. Discharged home today after PT/OT. Coumadin dose per nomogram. Job ID: [id number]
[2021-01-09 07:21] LABS: BUN Creatinine Ratio 19.9 (10-20); Calcium 8.9 mg/dl (8.5-10.1); Creatinine Clr Calc Pharmacy 47.2 ml/min; Est GFR (African American) 49.3 ml/min; Est GFR (Non-African American) 42.5 ml/min
[2021-01-09] MEDS ORDERED: dexAMETHasone 10 MG in SYRINGE 0 ML IV SCH (08:00)
[2021-01-09] MEDS: ASCORBIC ACID 500 MG TAB PO SCH (08:15)
[2021-01-09] MEDS: FERROUS GLUCONATE 324 MG TAB PO SCH (08:15)
[2021-01-09] MEDS: DOCUSATE SODIUM 100 MG CAP PO SCH (08:15)
[2021-01-09] MEDS ORDERED: MULTIVITAMIN TAB PO SCH (09:00)
[2021-01-09] MEDS: ORTHO WARFARIN NOMOGRAM SCH (10:27)
[2021-01-09] MEDS ORDERED: WARFARIN SOD 5 MG TAB PO ONE ×2 (12:15→16:00)
== END 2021-01-09 13:41 | disposition home health service (06) ==
LOC: ASU 06:13 → 3E 06:13